=== PATIENT | male | born 1990 | race Two or more races ===

== ENCOUNTER 2019-12-04 21:34 | Emergency (ER) | payer BC ==
[~2019-12-04] VITALS: Ht 175.3 cm; Wt 79.0 kg
[2019-12-04] MEDS ORDERED: MORPHINE SULFATE 4 MG/ML CPJ (NOT FOR IM USE) IV ONE (22:00)
[2019-12-04] MEDS ORDERED: BUPIVACAINE HCL/PF 0.25% (2.5MG/ML) 10ML INFIL ONE (22:00)
[2019-12-04] MEDS ORDERED: ONDANSETRON HCL 4MG/2ML INJ IV ONE (22:00)
[2019-12-05 01:34] VITALS: BP 110/68
== END 2019-12-05 01:11 | disposition home or self-care (01) ==
LOC: ER 21:34
DX: S43.005A Unspecified dislocation of left shoulder joint, initial encounter (principal); J45.909 Unspecified asthma, uncomplicated; R00.0 Tachycardia, unspecified; X58.XXXA Exposure to other specified factors, initial encounter; Y93.89 Activity, other specified; Y92.89 Other specified places as the place of occurrence of the external cause; Y99.8 Other external cause status
CPT/HCPCS: 23650; 73030; 93005; 96374; 99284; J2270; J2405; J3490